=== PATIENT | female | born 1975 | race Hispanic/Latino ===

== ENCOUNTER 2024-08-01 11:31 | Emergency (ER) | payer OTHER ==
[~2024-08-01] VITALS: Ht 162.6 cm; Wt 84.8 kg
--- NOTE | 2024-08-01 12:07 | ERN ---
General Chief Complaint: Chest Wall Pain Stated Complaint: CP Time Seen by MD: 11:36 Time Seen by Midlevel: 11:36 Source: patient History of Present Illness Initial Comments Patient is a 49-year-old female presenting to the emergency department with left-sided chest pain that started earlier today while she was at work. 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 Patient reports having a history of bilateral mastectomies in 2021 after being found BRCA positive. Denies having any history of blood clots. Denies being on any blood thinners or any medication. Allergies: Coded Allergies: No Known Drug Allergies (Unverified Allergy, Unknown, 08/01/24) ROS Dictation CONSTITUTIONAL: Negative except for HPI HEAD/FACE: Negative except for HPI EENT: Negative except for HPI RESPIRATORY: Negative except for HPI GASTROINTESTINAL/ABDOMINAL: Negative except for HPI GENITOURINARY: Negative except for HPI MUSCULOSKELETAL: Negative except for HPI INTEGUMENTARY: Negative except for HPI NEUROLOGICAL/PSYCH: Negative except for HPI HEMATOLOGIC/LYMPHATIC: Negative except for HPI All Systems Negative, Except as noted above. 13 point review of systems assessed and all negative except for above. Physical Exam Physical Exam Dictation Vital Signs reviewed General Appearance: Alert, oriented x 3, no acute distress, well developed, nourished. Head and Face: non-traumatic. Eyes: PERRL, pink conjunctivas, eyelid no trauma, anterior chamber with arcus senilis. Ears: Pinnas intact and no signs of trauma or erythema ear canals clear and no discharge TM no erythema Nose: No discharge, no bleeding. Oropharynx: Mouth normal, tongue pink, pharynx clear,no erythema, tonsils no exudates, no abscesses noted, mucous membrane moist Neck: Supple, non-tender, no thyromegaly, no masses, no JVD, no bruits Breast:Deferred Chest:No tenderness, no crepitus, no paradoxical movement, no retractions Lungs:Clear, well-ventilated, symmetric, no rales, no wheezing, no rhonchi, no stridor, good breath sounds bilaterally Heart: Regular rate, regular rhythm, no murmur, no gallops Vascular: no peripheral edema, Abdomen: Soft, positive bowel sounds, nondistended, no guarding, nontender, no rebound, no masses no hepatomegaly, no splenomegaly, no Blanchard's sign, no hernias. Rectal: Deferred Genital: Deferred Neurological: Normal speech, motor function intact, sensory function intact Musculoskeletal: Neck nontender, full range of motion, back nontender, full range of motion, Extremities: nontender, full range of motion Skin: Color pink, dry, no turgor, no rash, no lacerations, no abrasions, no contusions. Lymphatic: Deferred Results Laboratory and Microbiology Lab and Micro Result Laboratory Tests Test 08/01/24 14:14 08/01/24 14:23 08/01/24 15:37 White Blood Count 9.4 K/uL (4.8-10.8) Red Blood Count 4.72 MIL/uL (4.00-5.50) Hemoglobin 13.4 g/dL (12.0-16.0) Hematocrit 41.1 % (36-48) Mean Corpuscular Volume 87.1 fL (79-99) Mean Corpuscular Hemoglobin 28.4 pg (27.0-33.0) Mean Corpuscular Hemoglobin Concent 32.6 g/dL (32.0-36.0) Red Cell Distribution Width 13.2 % (11.0-15.5) Platelet Count 228 K/uL (130-400) Mean Platelet Volume 12.4 fL (7.5-10.5) H Immature Granulocyte % (Auto) 0.4 % (0-1) Neutrophils (%) (Auto) 67.0 % (40.0-77.0) Lymphocytes (%) (Auto) 21.8 % (21.0-51.0) Monocytes (%) (Auto) 8.1 % (3.0-13.0) Eosinophils (%) (Auto) 2.3 % (0.0-8.0) Basophils (%) (Auto) 0.4 % (0.0-5.0) Neutrophils # (Auto) 6.3 K/uL (1.8-7.7) Lymphocytes # (Auto) 2.1 K/uL (1.0-4.8) Monocytes # (Auto) 0.8 K/uL (0.1-1.0) Eosinophils # (Auto) 0.22 K/uL (0.00-0.70) Basophils # (Auto) 0.04 K/uL (0.00-0.20) Absolute Immature Granulocyte (auto 0.04 K/uL (0-1) Nucleated Red Blood Cells 0.0 % (0.0-0.19) Sodium Level 142 mmol/L (136-145) Potassium Level 3.8 mmol/L (3.5-5.1) Chloride Level 105 mmol/L (101-111) Carbon Dioxide Level 29 mmol/L (21-32) Blood Urea Nitrogen 9 mg/dL (7-18) Creatinine 0.6 mg/dL (0.5-1.0) Glomerular Filtration Rate Calc 111 mL/min (>90) Random Glucose 86 mg/dL (70-105) Total Calcium 8.8 mg/dL (8.5-10.1) Magnesium Level 2.00 mg/dL (1.80-2.40) Total Creatine Kinase 62 U/L (21-232) Troponin I High Sensitivity < 4 ng/L (4-50) L < 4 ng/L (4-50) L B-Type Natriuretic Peptide 15 pg/mL (0-100) Serum Test, Qualitative NEGATIVE (NEGATIVE) Urine Color YELLOW (YELLOW) Urine Appearance CLEAR (CLEAR) Urine pH 5.5 (5.0-8.0) Urine Specific [place] 1.030 (1.001-1.031) Urine Protein 10 mg/dL (NEGATIVE) H Urine Glucose (UA) NEGATIVE mg/dL (NEGATIVE) Urine Ketones 5 mg/dL (NEGATIVE) H Urine Occult Blood SMALL (NEGATIVE) H Urine Nitrate NEGATIVE (NEGATIVE) Urine Bilirubin NEGATIVE mg/dL (NEGATIVE) Urine Urobilinogen 0.2 mg/dL (0.2-1.0) Urine Leukocyte Esterase NEGATIVE [place]/uL Urine RBC 6-10 /HPF (0-1) H Urine WBC 0-1 /HPF (0-1) Urine Squamous Epithelial Cells FEW /HPF (0-2) Urine Bacteria RARE /HPF (None Seen) Labs Reviewed?: Yes MDM MDM: Patient is a 49-year-old female presenting to the emergency department with left-sided chest pain that started earlier today while she was at work. 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 Patient reports having a history of bilateral mastectomies in 2021 after being found BRCA positive. Denies having any history of blood clots. Denies being on any blood thinners or any medication. On physical examination patient is in no acute distress. Vital signs are stable. Patient is afebrile and nontoxic appearing. Cardiac workup was initiated. Her CBC does not show any leukocytosis. Her chemistries are stable. Her 1st set of cardiac enzymes are negative however on repeat evaluation patient reports continued chest pain. A repeat troponin was obtained which was also negative. Her chest x-ray does not show any acute abnormality. Patient reports a similar episode in the past where everything else was normal mom was told this was stress related. She does admit to being u nder a lot of stress due to personal and work issues. I did offer admission for further observation and management but she is refusing admission and would like to be discharged home. Differential diagnosis: ACS, anxiety, noncardiac chest pain There are no social concerns with this patient. Prescription drug management Prescriptions will include: None Medical management and examination interpretation discussions were had by me with other qualified healthcare professionals as indicated for the patient's care. ED Course Orders Procedure Category Date Status Time 12 Lead Ekg Tracing- EKG 08/01/24 Logged Technical 11:44 Cbc With Differential LAB 08/01/24 Complete 11:44 Basic Metabolic Panel LAB 08/01/24 Complete 11:44 B-Type Natriuretic LAB 08/01/24 Complete Peptide 11:44 Creatine Kinase, Total LAB 08/01/24 Complete 11:44 Testing, LAB 08/01/24 Complete Serum Hcg 11:44 Troponin I High LAB 08/01/24 Complete Sensitivity 11:44 Urinalysis Profile LAB 08/01/24 Complete 11:44 Magnesium LAB 08/01/24 Complete 11:44 Chest 1vw RAD 08/01/24 Resulted 11:44 Nitroglycerin 0.4mg PHA 08/01/24 In Process Sl Tab (Nitrostat) 16:00 Troponin I High LAB 08/01/24 Complete Sensitivity 15:31 Current Medications Medications (Trade) Dose Ordered Sig/Isauro Route PRN Reason Start Time Stop Time Status Last Admin Dose Admin Nitroglycerin (Nitrostat) 0.4 mg AD PRN SL CHEST PAIN 08/01/24 16:00 08/31/24 15:59 Vital Signs Date Time Temp Pulse Resp B/P (MAP) Pulse Ox O2 Delivery O2 Flow Rate FiO2 08/01/24 16:57 64 17 116/80 99 Room Air* 0 21 08/01/24 14:43 97.9 78 16 115/77 99 Room Air* 0 21 08/01/24 12:01 97.5 69 16 142/88 98 Room Air 0 08/01/24 11:42 97.5 69 16 142/88 98 Room Air* 0 21 [facility] [address] [place] [address] IMAGING REPORT Signed PATIENT: ADAL SHORE MR#: [id number] : 1975 SEX: F AGE: 49 LOCATION: [facility] ORDER [id number] STATUS: [facility] ER REPORT#: [id number] SERVICE 1144 REASON: chest pain ORDERING PHYSICIAN: RUTHIE STILL PROCEDURE: CXR1VW - CHEST 1VW CHEST 1VW HISTORY: Chest pain COMPARISON: 01/18/2009 FINDINGS: A frontal projection of the chest was obtained. Prominent interstitial markings are seen with possible superimposed infiltrates. The heart is borderline enlarged. Degenerative changes are seen. No evidence of aortic calcification is seen. IMPRESSION: 1. Prominent interstitial markings are seen with possible superimposed infiltrates. DICTATED BY: GAEL SERRANO MD DATE: 08/01/24 1338 ELECTRONICALLY SIGNED BY: GAEL SERRANO MD DATE: 08/01/24 1341 HEART Score Response (Comments) Value History: Low suspicion (0) 0 EKG: Normal 0 Age: 45-65yrs (+1) 1 Risk Factors: No known risk factors (0) 0 Initial Troponin: Normal limit (0) 0 HEART Score Risk: Low Risk for MACE (1-3) Total 1 DX & DISP Disposition: Discharge Departure Impression: Primary Impression: Non-cardiac chest pain Condition: Stable Additional Instructions: Your blood work today is unremarkable. Your cardiac enzymes are negative. Your EKG does not show any evidence of heart attack. Your chest x-ray does not show any evidence of a collapsed lung are pneumonia. Please follow up with your primary care doctor for possible outpatient referral to Cardiology. If you develop any new or worsening symptoms please report to the ER for further evaluation. Referrals: SELF,REFERRAL (PCP) MORRIS LAWRENCE MD Time of Disposition: 16:45 I have reviewed the case, and I agree with, Diagnosis and Plan I performed the substantive portion of the visit. I have reviewed and personally made and approve the management plan that is documented in the note by myself or the LISA. I acknowledge for responsibility for the patient's management plan. RUTHIE STILL Aug 01, 2024 12:07
--- NOTE | 2024-08-01 13:41 | HMCIMG ---
CHEST 1VW HISTORY: Chest pain COMPARISON: 01/18/2009 FINDINGS: A frontal projection of the chest was obtained. Prominent interstitial markings are seen with possible superimposed infiltrates. The heart is borderline enlarged. Degenerative changes are seen. No evidence of aortic calcification is seen. IMPRESSION: 1. Prominent interstitial markings are seen with possible superimposed infiltrates.
--- NOTE | 2024-08-01 14:30 | NUR ---
PT PLACED IN ROOM 9
[2024-08-01 14:38] LABS: BASOPHILS # (AUTO) 0.04 K/uL (0.00-0.20); BASOPHILS % (AUTO) 0.4 % (0.0-5.0); EOSINOPHILS # (AUTO) 0.22 K/uL (0.00-0.70); EOSINOPHILS % (AUTO) 2.3 % (0.0-8.0); HEMATOCRIT 41.1 % (36-48); IMMATURE GRANULOCYTE ABSOLUTE 0.04 K/uL (0-1); LYMPHOCYTES # (AUTO) 2.1 K/uL (1.0-4.8); LYMPHOCYTES % (AUTO) 21.8 % (21.0-51.0); MEAN CORPUSCULAR HEMOGLOBIN 28.4 pg (27.0-33.0); MEAN CORPUSCULAR HGB CONC 32.6 g/dL (32.0-36.0); MEAN CORPUSCULAR VOLUME 87.1 fL (79-99); MONOCYTES # (AUTO) 0.8 K/uL (0.1-1.0); MONOCYTES % (AUTO) 8.1 % (3.0-13.0); NEUTROPHILS # (AUTO) 6.3 K/uL (1.8-7.7); PLATELET COUNT (AUTO) 228 K/uL (130-400); RED BLOOD CELL COUNT(AUTO) 4.72 MIL/uL (4.00-5.50); RED CELL DISTRIBUTION WIDTH 13.2 % (11.0-15.5); WHITE BLOOD COUNT (AUTO) 9.4 K/uL (4.8-10.8)
[2024-08-01 14:43] VITALS: TEMP 97.8
[2024-08-01 14:58] LABS: CREATININE 0.6 mg/dL (0.5-1.0); POTASSIUM 3.8 mmol/L (3.5-5.1)
[2024-08-01 15:01] LABS: APPEARANCE,URINE CLEAR (CLEAR); BILIRUBIN,URINE NEGATIVE (NEGATIVE); COLOR,URINE YELLOW (YELLOW); GLUCOSE, URINE (UA) NEGATIVE (NEGATIVE); KETONES,URINE 5 mg/dL (NEGATIVE); LEUKOCYTE ESTERASE ,URINE NEGATIVE Leu/uL (NEGATIVE); NITRATE,URINE NEGATIVE (NEGATIVE); OCCULT BLOOD,URINE SMALL (NEGATIVE); PH,URINE 5.5 (5.0-8.0); PROTEIN,URINE 10 mg/dL (NEGATIVE); UROBILINOGEN,URINE 0.2 mg/dL (0.2-1.0)
[2024-08-01 15:10] LABS: ADD UA MICROSCOPIC YES
[2024-08-01 15:12] LABS: BACTERIA,URINE RARE /HPF (None Seen); MUCUS,URINE RARE LPF (None Seen); SQUAMOUS EPITHELIAL CELL,UR FEW /HPF (0-2); WBC,URINE 0-1 /HPF (0-1)
[2024-08-01 15:27] LABS: B-TYPE NATRIURETIC PEPTIDE 15 pg/mL (0-100)
[2024-08-01] MEDS ORDERED: NITROGLYCERIN 0.4 MG SL TAB SL PRN (16:00)
[2024-08-01 16:57] VITALS: BP 116/80; PULSE 64; RESP 17; O2SAT 99
--- NOTE | 2024-08-01 19:56 | EKG ---
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
== END 2024-08-01 17:19 | disposition home or self-care (01) ==
LOC: EDH 11:31
DX: R07.89 Other chest pain (principal); Z90.13 Acquired absence of bilateral breasts and nipples
CPT/HCPCS: 36415; 71045; 80048; 81001; 82550; 83735; 83880; 84484; 84703; 85025; 93005; 99285